=== PATIENT | female | born 1965 | race Hispanic/Latino ===

== ENCOUNTER 2017-06-14 10:15 | Day surgery (SDC) | payer BC ==
[2017-06-13 11:13] VITALS: BMI 29.2
[2017-06-14] MEDS ORDERED: Ondansetron HCl/PF 4 MG/2 ML Vial ONE ×2 (11:39→16:02)
[2017-06-14] MEDS ORDERED: Midazolam HCl 2 mg/2 ml Vial ONE (11:39)
[2017-06-14] MEDS ORDERED: Fentanyl 250 MCG/5 ML VIAL ONE (11:39)
[2017-06-14] MEDS ORDERED: Clindamycin/D5W 900 mg/50 ml Premix Bag ONE (11:54)
[2017-06-14] MEDS ORDERED: Levofloxacin 500 mg/D5W 100 ml Premix Bag ONE (11:54)
[2017-06-14 11:58] LABS: #Eosinphils 0.2 thou/uL (0.0-0.7); #Lymphocytes 1.7 thou/uL (1.20-3.40); #Monocytes 0.5 thou/uL (0.11-0.59); #Neutrophils 4.9 thou/uL (1.40-6.50); %Basophils 0.7 % (0.0-1.0); %Eosinophils 2.2 % (0.0-10.0); %Lymphocytes 23.2 % (21.0-51.0); %Monocytes 6.6 % (0.0-10.0); %Neutrophils 67.3 % (42.0-75.0); Hemoglobin 14.1 g/dL (12.0-16.0); Mean Corpuscular HGB CONC 34.3 g/dL (32.0-36.0); Mean Corpuscular Hemoglobin 31.1 pg (27.0-31.0); Mean Corpuscular Volume 90.7 fl (81.0-99.0); Mean Platelet Volume 9.2 fL (7.4-10.4); Platelet Count 183 thou/uL (130-400); Red Blood Cell (RBC) Count 4.54 mill/uL (4.20-5.40); White Blood Cell (WBC) Count 7.2 thou/uL (4.8-10.8)
[2017-06-14 12:02] LABS: PTT 26.9 SEC (22.9-36.1); Prothrombin Time 13.4 SEC (12.0-14.7)
[2017-06-14] MEDS ORDERED: Sodium Chloride 0.9% 10 ML ONE (12:11)
[2017-06-14] MEDS ORDERED: Thrombin 5000 UNITS/5 ML VIAL ONE (12:11)
[2017-06-14 12:21] LABS: Anion Gap 13 mmol/L (10-20); BUN (Urea Nitrogen) 12 mg/dL (9.8-20.1); Calc. Creatinine Clearance 115 mL/min (70-130); Calcium 9.8 mg/dL (7.8-10.44); Carbon Dioxide 28 mmol/L (22-29); Chloride 104 mmol/L (98-107); Estimated GFR-MDRD 90; Glucose 104 mg/dL (70-105); Potassium 4.6 mmol/L (3.5-5.1); Sodium 140 mmol/L (136-145)
[2017-06-14] MEDS ORDERED: Scopolamine 1.5 mg/72 hour Patch ONE (12:38)
--- NOTE | 2017-06-14 14:11 | EKG ---
Test Reason : PREOP Blood Pressure : / mmHG Vent. Rate : 078 BPM Atrial Rate : 078 BPM P-R Int : 162 ms QRS Dur : 136 ms QT Int : 420 ms P-R-T Axes : 058 082 -04 degrees QTc Int : 478 ms Normal sinus rhythm Right bundle branch block T wave abnormality, consider inferior ischemia Abnormal ECG Confirmed by HUANG PANTOJA ([id number]) on 06/14/2017 2:10:50 PM Referred By: SONYA Confirmed By:HUANG PANTOJA
[2017-06-14] MEDS ORDERED: Promethazine HCl 25 MG/ML VIAL SLOW IVP PRN (15:15)
[2017-06-14] MEDS ORDERED: Albuterol Sulfate 2.5 mg/3 ml Neb NEB PRN (15:17)
[2017-06-14] MEDS ORDERED: Fleet Enema 133 ML BOT PR PRN (15:43)
[2017-06-14] MEDS ORDERED: traMADol HCl 50 MG TAB PO PRN (15:43)
[2017-06-14] MEDS ORDERED: Mag-Al 1200 mg/1200 mg/30 ML UDCUP PO PRN (15:43)
[2017-06-14] MEDS ORDERED: Bisacodyl 10 MG SUPP PR PRN (15:43)
[2017-06-14] MEDS ORDERED: Morphine 4 MG/ML VIAL SLOW IVP PRN (15:43)
[2017-06-14] MEDS ORDERED: Promethazine HCl 25 MG/ML VIAL IM PRN (15:43)
[2017-06-14] MEDS ORDERED: Milk Of Magnesia 30 ML UDCUP PO PRN (15:43)
[2017-06-14] MEDS ORDERED: tiZANidine HCl 4 MG TAB PO PRN (15:43)
[2017-06-14] MEDS ORDERED: Ondansetron HCl/PF 4 MG/2 ML Vial IVP PRN (15:43)
[2017-06-14] MEDS ORDERED: Fentanyl 100 MCG/2 ML VIAL ONE (15:53)
[2017-06-14] MEDS ORDERED: PROPOFOL 200 MG/20 ML VIAL ONE (16:02)
[2017-06-14] MEDS ORDERED: diphenhydrAMINE 50 MG/ML VIAL ONE (16:02)
[2017-06-14] MEDS ORDERED: Glycopyrrolate 0.2 MG/ML 5 ML SYRINGE ONE (16:02)
[2017-06-14] MEDS ORDERED: PHENYLEPHRINE-NS 100 MCG/ML 10 ML SYRINGE ONE (16:02)
[2017-06-14] MEDS ORDERED: Dexamethasone 20 MG/5 ML VIAL ONE (16:02)
[2017-06-14] MEDS ORDERED: Lidocaine 1% PF 5 ML VIAL ONE (16:02)
[2017-06-14] MEDS: Sodium Chloride 0.9% 1,000 ML IV SCH (17:46)
[2017-06-14] MEDS: Mometasone/Formoterol 120 PUFF INHALER INH SCH (18:57)
[2017-06-14] MEDS: Acetaminophen 325 MG TAB PO PRN (19:10)
[2017-06-14] MEDS ORDERED: Clindamycin/D5W 900 MG in Premix Bag 1 BAG IVPB SCH (20:00)
[2017-06-14] MEDS ORDERED: Rosuvastatin 5 MG TAB PO SCH (21:00)
[2017-06-14] MEDS ORDERED: diphenhydrAMINE 50 MG/ML VIAL IVP SCH (21:15)
[2017-06-15] MEDS: Acetaminophen 325 MG TAB PO PRN ×3 (04:46→12:48)
[2017-06-15] MEDS: Mometasone/Formoterol 120 PUFF INHALER INH SCH (06:47)
[2017-06-15] MEDS: Sodium Chloride 0.9% 1,000 ML IV SCH (07:26)
[2017-06-15] MEDS ORDERED: Losartan 25 MG TAB PO SCH (09:00)
[2017-06-15 12:29] VITALS: BP 143/84; TEMP 98.3
--- NOTE | 2017-06-15 13:04 | PRG ---
DATE OF SERVICE: 06/15/2017 SUBJECTIVE: Ms. Villatoro is postoperative day #1 from C5-C7 ACDF, she has had improvement in her rig ht arm pain. As expected, she has neck and interscapular pain consistent with realignment of her cer vical spine. Her drain output has been minimal and we will remove the drain. We went over intraoper ative and postoperative issues and I reviewed her intraoperative films with her as well. She has had some reactions in particular to the Cleocin although this appears to be improving. She has mobilize d to the commode and is voiding on her own and tolerating oral diet with mild dysphonia. Her strengt h is good in her upper and lower extremities. We will plan on dismissal likely today as well as we m dawna sure she is not having undue side effects to the medication.
--- NOTE | 2017-06-15 15:31 | OP ---
DATE OF PROCEDURE: 06/14/2017 LOCATION: OR 11. WOUND TYPE: Type 1 wound. SURGEON: Harris Jones M.D. AGENT [employer]ING GATE: Marquez Roque PA-C. PREPROCEDURE DIAGNOSES: Cervical stenosis with neck and right arm pain with disk extrusion C5-C6, C6 -C7. POSTPROCEDURE DIAGNOSES: Cervical stenosis with neck and right arm pain with disk extrusion C5-C6, C 6-C7. PROCEDURES: 1. Anterior C5-C6, C6-C7 diskectomies for decompression of spinal cord and C6 and C7 nerve roots felicia aterally. 2. Placement of interbody spacers packed with local bone autograft obtained from same incision and a llograft C5-C6 and C6-C7. 3. Anterior cervical plate and screw fixation at C5, C6, and C7. 4. Anterior fusion, C5, C6, and C7. 5. Use of operative microscope for microdissection. DESCRIPTION OF PROCEDURE: After informed consent was obtained from the patient, the patient was brou ght to OR 11. Proper patient pause and identification was carried out. She was placed in excellent general endotracheal anesthesia and positioned supine on the operating room table. All appropriate p oints were padded. We identified right anterior eliazar that would allow for approach to C5, C6, and C7 segments. This region was sterilely cleansed, prepared, and draped and proper patient pause and christie ntification was carried out. The wound was then opened with a combination of sharp, monopolar and bl unt dissection and proceeded lateral to the tracheoesophageal bundle and medial to the right carotid sheath. We entered the prevertebral layer of deep cervical fascia and the longus colli muscles were swept laterally. We then performed distraction at C5-C6 following localization of film and disk spac e was entered. We had excellent decompression of the spinal cord and the C6 nerve roots with removal of disk fragments. An interbody spacer was then placed after preparation of the endplates. This wa s packed with local bone autograft obtained from same incision and allograft and this was for arthrod esis. We then turned our attention distraction at C6-C7 and diskectomy was performed there as well. The operative microscope was used for microdissection for the disk space preparation at C5-C6 and C6 -C7 with excellent decompression of the common dural tube and the C7 nerve roots. It did appear as i f there was a new disk extrusion compared to the MRI. At the right C7 segment, I suspect this is why the patient's pain increased prior to surgery. Interbody spacer packed with local bone autograft an d obtained same incision and allograft was placed at C6-C7 for arthrodesis. Copious irrigation and h emostasis occurred throughout. We then removed the microscope and anterior cervical plate and screw fixation at C5, C6, C7, then occurred with final tightening. Copious irrigation again occurred. Wou nd was then closed in anatomic layers over a drain following meticulous hemostasis and irrigation. T he patient then emerged from anesthesia.
== END 2017-06-15 13:54 | disposition home or self-care (01) ==
LOC: SDC 10:15 → SURG A 15:43 → SDC 06-15 13:54
PROVIDERS: ATTEND Surgery
PROC: 0RG2070 Fusion of 2 or more Cervical Vertebral Joints with Autologous Tissue Substitute, Anterior Approach, Anterior Column, Open Approach (ICD-10-PCS; principal; 2017-06-15)
DX: M50.223 Other cervical disc displacement at C6-C7 level (principal); M48.02 Spinal stenosis, cervical region; Z88.5 Allergy status to narcotic agent; Z88.0 Allergy status to penicillin; Z91.040 Latex allergy status
CPT/HCPCS: 36415; 76001; 80048; 85025; 85610; 85730; 93005; 93010; A4216; C1713; C1776; J0131; J1100; J1200; J1956; J2001; J2250; J2405; J2704; J3010; J3490

== ENCOUNTER 2017-08-02 14:44 | Outpatient (CLI) | payer BC ==
--- NOTE | 2017-08-02 15:34 | RAD ---
CERVICAL SPINE 3 VIEWS: Date: 08/02/17 HISTORY: 52-year-old female with history of cervical radiculopathy. Prior surgery. FINDINGS: Anterior cervical fusion changes are noted at C5, C6, and C7 with intradiscal prosthesis. No signific ant malalignment. Generalized cervical spondylosis. IMPRESSION: Anterior cervical fusion changes at C5, C6, and C7. Generalized spondylosis. POS: [facility]
== END 2017-08-02 14:45 | disposition home or self-care (01) ==
LOC: TBSIIMAG 14:44
PROVIDERS: ATTEND Surgery
DX: M54.2 Cervicalgia (principal); M47.892 Other spondylosis, cervical region; Z98.890 Other specified postprocedural states
CPT/HCPCS: 72040

== ENCOUNTER 2019-09-08 08:15 | Outpatient (CLI) | payer BC ==
--- NOTE | 2019-09-08 09:44 | MRI ---
MRI cervical spine with and without contrast: 09/08/2019 HISTORY: 54-year-old female with neck pain, arm pain, interscapular pain, and paresthesia. M 54.2, M 79.603, M 54.89, and R 20.2 COMPARISON: No prior MRI of C-spine FINDINGS: ACDF hardware at C5, C6, and C7. Vertebral body heights are maintained. Cervical spinal cord is normal in size and signal, with no abnormal intramedullary enhancement. No major subluxation. No high-grade disc space narrowing at C2-3, C3-4, or C4-5, or C7-T1. No severe facet DJD. C1-2: No central stenosis. C2-3: No central or significant neural foraminal stenosis. Mild to moderate bilateral facet DJD. C3-4: Central disc herniation that mildly indents ventral surface of spinal cord. There is a right-ce ntral component of the disc herniation. There is superior migration of disc material to subpedicle level of C3. The migration qualifies this is a disc extrusion. Review of the CT of 06/23/2015 demonstra daren that this disc herniation was present at that time. Moderate central spinal canal stenosis. Small bilateral uncinate process osteophytes. Moderate-severe right neural foraminal stenosis. Little or no left neural foraminal stenosis. C4-5: Shallow broad-based disc protrusion with central and bilateral paracentral components, without contact with spinal cord. Moderate central spinal canal stenosis. Small bilateral uncinate process osteophytes. Moderate right and mild left neural foraminal stenosis. Bony excrescence protrudes poste riorly from the right C4 inferior articular facet away from the spinal canal and neural foramen, into posterior perivertebral space) without associated edema: Osteophyte versus exostosis. Unchanged since 06/23/2015. Mild to moderate right facet DJD. C5-6: No central stenosis. Moderate size bilateral uncinate process osteophytes. Mild bilateral neura l foraminal stenosis. C6-7: No central stenosis. No neural foraminal stenosis. C7-T1: No central or neural foraminal stenosis. IMPRESSION: 1.) Chronic central and right-central disc herniation at C3-4, chronically mildly impinging on spinal cord and causing moderate to severe central spinal canal stenosis. 2) high-grade right neural foraminal stenosis at C3-4. 3) status post anterior cervical discectomy and fusion at C5-6-7.
== END 2019-09-08 08:16 | disposition home or self-care (01) ==
LOC: SCSMRI 08:15
PROVIDERS: ATTEND Surgery
DX: M54.2 Cervicalgia (principal); R20.2 Paresthesia of skin; M79.603 Pain in arm, unspecified; M54.89 Other dorsalgia; M50.21 Other cervical disc displacement, high cervical region; M48.02 Spinal stenosis, cervical region; Z98.1 Arthrodesis status
CPT/HCPCS: 72156

== ENCOUNTER 2019-09-16 12:03 | Outpatient (CLI) | payer BC ==
--- NOTE | 2019-09-16 13:33 | RAD ---
CERVICAL SPINE 2 VIEWS: Date: 09/16/2019 HISTORY: Prior surgery, pain. COMPARISON: 08/02/2017. FINDINGS: There is anterior diskectomy and fusion hardware at C5-6/C6-7. No evidence for hardware failure. Ther e is disc space narrowing with posterior osteophyte formation at C4-5, C5-6, and C6-7, stable. Mild a nterolisthesis at C7-T1 again noted measuring in the 3-4 mm range with associated disc space narrowin g and anterior osteophyte formation. Multilevel mid cervical spine facet and uncovertebral osteophyte formation noted on the frontal view. IMPRESSION: Stable postoperative and degenerative changes of the cervical spine. POS: [facility]
== END 2019-09-16 12:04 | disposition home or self-care (01) ==
LOC: SCSRAD 12:03
PROVIDERS: ATTEND Surgery
DX: M54.2 Cervicalgia (principal); M79.603 Pain in arm, unspecified; R20.2 Paresthesia of skin; M25.519 Pain in unspecified shoulder; M47.812 Spondylosis without myelopathy or radiculopathy, cervical region; Z98.890 Other specified postprocedural states
CPT/HCPCS: 72040

== ENCOUNTER 2020-05-17 15:17 | Outpatient (CLI) | payer BC | END 2020-05-17 15:18 | disposition home or self-care (01) | LOC: SCSRAD 15:17 | PROVIDERS: ATTEND Surgery | DX: M54.2 Cervicalgia (principal); M25.519 Pain in unspecified shoulder; M47.812 Spondylosis without myelopathy or radiculopathy, cervical region; Z98.890 Other specified postprocedural states | CPT/HCPCS: 72040 ==

== ENCOUNTER 2023-01-23 12:12 | Outpatient (CLI) | payer BC | END 2023-01-23 12:13 | disposition home or self-care (01) | LOC: SCSRAD 12:12 | PROVIDERS: ATTEND Family Medicine | DX: R07.81 Pleurodynia (principal) | CPT/HCPCS: 71046 ==

== ENCOUNTER 2024-02-10 11:34 | Outpatient (CLI) | payer BC | END 2024-02-10 11:35 | disposition home or self-care (01) | LOC: SCSRAD 11:34 | PROVIDERS: ATTEND Surgery | DX: S32.030D Wedge compression fracture of third lumbar vertebra, subsequent encounter for fracture with routine healing (principal); M47.816 Spondylosis without myelopathy or radiculopathy, lumbar region | CPT/HCPCS: 72100 ==

== ENCOUNTER 2024-10-22 08:03 | Outpatient (CLI) | payer BC | END 2024-10-22 08:04 | disposition home or self-care (01) | LOC: SCSMRI 08:03 | PROVIDERS: ATTEND Surgery | DX: M51.362 Other intervertebral disc degeneration, lumbar region with discogenic back pain and lower extremity pain (principal); M47.817 Spondylosis without myelopathy or radiculopathy, lumbosacral region; M43.16 Spondylolisthesis, lumbar region; M47.812 Spondylosis without myelopathy or radiculopathy, cervical region; M50.31 Other cervical disc degeneration, high cervical region; M50.33 Other cervical disc degeneration, cervicothoracic region; M48.07 Spinal stenosis, lumbosacral region; M48.061 Spinal stenosis, lumbar region without neurogenic claudication; Z98.1 Arthrodesis status | CPT/HCPCS: 72050; 72070; 72120; 72148 ==